=== PATIENT | female | born 1950 | race Caucasian/White ===

== ENCOUNTER → 2017-01-25 | Outpatient (CLI) | payer MEDICARE, BC | END | disposition home or self-care (01) | LOC: CFH 14:46 | PROVIDERS: ATTEND Internal Medicine | DX: Z12.31 Encounter for screening mammogram for malignant neoplasm of breast (principal) | CPT/HCPCS: 77063; G0202 ==

== ENCOUNTER → 2018-01-27 | Outpatient (CLI) | payer MEDICARE, BC | LOC: CFH 14:08 | PROVIDERS: ATTEND Internal Medicine | DX: Z02.9 Encounter for administrative examinations, unspecified (principal) ==

== ENCOUNTER → 2018-04-14 | Outpatient (CLI) | payer MEDICARE, BC | END | disposition home or self-care (01) | LOC: CFH 13:01 | PROVIDERS: ATTEND Obstetrics & Gynecology | DX: N63.11 Unspecified lump in the right breast, upper outer quadrant (principal); N64.4 Mastodynia | CPT/HCPCS: 77065; 77066; G0279 ==

== ENCOUNTER → 2018-05-27 | Outpatient (CLI) | payer MEDICARE, BC ==
[~2018-05-27] MED LIST: GADOBUTROL 10 MMOL/10 ML VIAL ONE
== END | disposition home or self-care (01) ==
LOC: CFH 06:38
PROVIDERS: ATTEND Internal Medicine Hematology & Oncology
DX: C50.411 Malignant neoplasm of upper-outer quadrant of right female breast (principal)
CPT/HCPCS: A9585; C8908; 93306

== ENCOUNTER 2018-06-06 07:59 | Day surgery (SDC) | payer MEDICARE, BC ==
[~2018-06-06] VITALS: Ht 162.6 cm; Wt 76.3 kg
[2018-06-06 08:46] VITALS: BP 157/99
[2018-06-06] MEDS ORDERED: LACTATED RINGERS 1,000 ML IV SCH (08:46)
[2018-06-06] MEDS ORDERED: OMEG-107 PO (08:56)
[2018-06-06] MEDS ORDERED: LEVO100T5 PO ×2 (08:56)
[2018-06-06] MEDS ORDERED: ATOR10TA PO (08:56)
[2018-06-06] MEDS ORDERED: VENL150C6 PO (08:56)
[2018-06-06] MEDS ORDERED: CHOL2000 PO (08:56)
[2018-06-06] MEDS ORDERED: LIDOCAINE-MPF 1%, 2ML INFIL ONE (09:00)
[2018-06-06] MEDS ORDERED: BUPIVACAINE/PF-EPI 0.5% 1:200K ONE (10:03)
[2018-06-06] MEDS ORDERED: HEPARIN 5,000 UNITS/ML, 1ML ONE (10:04)
[2018-06-06] MEDS ORDERED: MIDAZOLAM 1 MG/ML, 2ML ONE (10:16)
[2018-06-06] MEDS ORDERED: FENTANYL PF 100 MCG/2ML ONE (10:16)
[2018-06-06] MEDS ORDERED: PROPOFOL 10 MG/ML, 20ML ONE (10:17)
[2018-06-06] MEDS ORDERED: ROCURONIUM 10MG/ML,5ML ONE (10:17)
[2018-06-06] MEDS ORDERED: SUCCINYLCHOLINE 20 MG/ML, 10ML ONE (10:17)
[2018-06-06] MEDS ORDERED: EPHEDRINE 50 MG/ML, 1ML IVPush PRN (11:00)
[2018-06-06] MEDS ORDERED: hydrALAzine 20 MG/ML, 1ML IV PRN (11:00)
[2018-06-06] MEDS ORDERED: MORPHINE SULFATE 4 MG/ML, 1ML IVPush PRN (11:00)
[2018-06-06] MEDS ORDERED: OXYcodone 5 MG/5 ML ORAL.SOL UDC PO PRN (11:00)
[2018-06-06] MEDS ORDERED: PROMETHAZINE 12.5 MG SUPP PR PRN (11:00)
[2018-06-06] MEDS ORDERED: FENTANYL PF 100 MCG/2ML IV PRN (11:00)
[2018-06-06] MEDS ORDERED: SCOPOLAMINE PATCH, 1.5MG PATCH.TD72 TD PRN (11:00)
[2018-06-06] MEDS ORDERED: LORazepam 2 MG/ML, 1ML IVPush PRN (11:00)
[2018-06-06] MEDS ORDERED: MIDAZOLAM 1 MG/ML, 2ML IV PRN (11:00)
[2018-06-06] MEDS ORDERED: ALBUTEROL SULFATE 2.5 MG/3 ML NPPB PRN (11:00)
[2018-06-06] MEDS ORDERED: ONDANSETRON ODT 8 MG PO PRN (11:00)
[2018-06-06] MEDS ORDERED: MEPERIDINE/PF 25MG/0.5ML IVPush PRN (11:00)
[2018-06-06] MEDS ORDERED: ONDANSETRON 2MG/ML, 2ML IV PRN (11:00)
[2018-06-06] MEDS ORDERED: PROMETHAZINE 25 MG/ML, 1ML IV PRN (11:00)
[2018-06-06] MEDS ORDERED: HALOPERIDOL 5 MG/ML IV PRN (11:00)
[2018-06-06] MEDS ORDERED: ACETAMINOPHEN 325 MG TABLET PO PRN (11:00)
[2018-06-06] MEDS ORDERED: LABETALOL 5MG/ML, 20ML IV PRN (11:00)
[2018-06-06] MEDS ORDERED: HYDROmorphone 1 MG/ML, 1ML IV PRN (11:00)
[2018-06-06] MEDS ORDERED: OXYcodone 5 MG/5 ML ORAL.SOL UDC ONE (11:10)
[2018-06-06] MEDS ORDERED: ACETAMINOPHEN 650 MG/20.3 ML UDC ONE (11:10)
[2018-06-06] MEDS ORDERED: ONDANSETRON 2MG/ML, 2ML ONE (16:00)
[2018-06-06] MEDS ORDERED: DEXAMETHASONE 4 MG/ML, 1ML ONE (16:00)
== END 2018-06-06 13:30 | disposition home or self-care (01) ==
LOC: OUT 07:59
PROVIDERS: ATTEND Surgery
DX: Z45.2 Encounter for adjustment and management of vascular access device (principal); C50.911 Malignant neoplasm of unspecified site of right female breast; E03.9 Hypothyroidism, unspecified; Z98.890 Other specified postprocedural states; Z90.49 Acquired absence of other specified parts of digestive tract; Z79.899 Other long term (current) drug therapy; Z88.1 Allergy status to other antibiotic agents; Z87.891 Personal history of nicotine dependence; Z72.89 Other problems related to lifestyle
CPT/HCPCS: 36561; 77001; 93005; C1788; J0330; J1100; J1644; J2250; J2405; J2704; J3010; J3490; J7120

== ENCOUNTER → 2018-06-08 | Outpatient (CLI) | payer MEDICARE, BC ==
[~2018-06-08] MED LIST changes: +ATOR10TA PO; +CHOL2000 PO; -GADOBUTROL 10 MMOL/10 ML VIAL ONE; +LEVO100T5 PO; +OMEG-107 PO; +VENL150C6 PO
== END | disposition home or self-care (01) ==
LOC: PETCFH 12:12
PROVIDERS: ATTEND Internal Medicine Hematology & Oncology
DX: N63.10 Unspecified lump in the right breast, unspecified quadrant (principal); K86.89 Other specified diseases of pancreas; C50.411 Malignant neoplasm of upper-outer quadrant of right female breast; Z90.49 Acquired absence of other specified parts of digestive tract
CPT/HCPCS: 78815; A9552

== ENCOUNTER → 2018-10-25 | Outpatient (CLI) | payer MEDICARE, BC ==
[~2018-10-25] MED LIST changes: +DIPH1TAB PO; +LISI5TAB7 PO; +METO25TA35 PO
[2018-10-25 14:34] LABS: ALBUMIN 3.2 g/dL (3.4-5.0); ANION GAP 7 mmol/L (5-15); CALCIUM 8.9 mg/dL (8.5-10.1); CHLORIDE 109 mmol/L (98-107)
[2018-10-25 14:38] LABS: ALANINE AMINOTRANSFERASE 16 U/L (12-78); ALKALINE PHOSPHATASE 99 U/L (45-117); BILIRUBIN,TOTAL 0.3 mg/dL (0.2-1.0); CREATININE 1.21 mg/dL (0.55-1.02); TOTAL PROTEIN 6.6 g/dL (6.4-8.2)
[2018-10-25 15:19] LABS: MEAN CORPUSCULAR HEMOGLOBIN 33.5 pg (27.0-34.8); MEAN CORPUSCULAR HGB CONC 32.1 g/dL (32.4-35.8); MEAN CORPUSCULAR VOLUME 104.2 fL (80-100); MEAN PLATELET VOLUME 7.3 fL (7.4-10.4); PLATELET COUNT 305 x10^3/uL (130-400); RED BLOOD COUNT 2.63 x10^6/uL (3.82-5.3); RED CELL DISTRIBUTION WIDTH 20.9 % (9.6-15.2)
[2018-10-25 15:20] LABS: MD YES
[2018-10-25 15:25] LABS: LYMPH#(MANUAL) 0.91 x10^3/uL (1-3.4); LYMPHS% (MANUAL) 8 % (22-44)
[2018-10-25 15:30] LABS: BAND#(MANUAL) 1.03 x10^3/uL; BANDS%(MANUAL) 9 % (0-7); NRBC % (MANUAL) 2 % (0-1); SEG#(MANUAL) 6.27 x10^3/uL (1.8-6.8); SEGS% (MANUAL) 55 % (42-75)
[2018-10-25 15:31] LABS: BASOS#(MANUAL) 0.11 x10^3/uL (0-0.1); BASOS% (MANUAL) 1 % (0-1); EOS#(MANUAL) 0.11 x10^3/uL (0.0-0.4); EOS% (MANUAL) 1 % (1-7); METAMYELOCYTES# (MANUAL) 0.57 x10^3/uL (0-0); METAMYELOCYTES% (MANUAL) 5 % (0-1); MONOS#(MANUAL) 1.94 x10^3/uL (0.3-2.7); MONOS% (MANUAL) 17 % (2-9); MYELOCYTES# (MANUAL) 0.46 x10^3/uL (0-0); MYELOCYTES% (MANUAL) 4 % (0-0)
[2018-10-25 15:32] LABS: ANISOCYTOSIS 2+; MICROCYTOSIS 1+; OVALOCYTES 1+; POLYCHROMASIA 1+
[2018-10-25 15:33] LABS: <PLATELET ESTIMATE> ADEQUATE; <PLT MORPHOLOGY> NORMAL PLT MORPH
== END | disposition home or self-care (01) ==
LOC: STAR 12:59
PROVIDERS: ATTEND Surgery
DX: Z01.818 Encounter for other preprocedural examination (principal); Z79.899 Other long term (current) drug therapy; Z72.89 Other problems related to lifestyle; Z88.1 Allergy status to other antibiotic agents; Z88.8 Allergy status to other drugs, medicaments and biological substances
CPT/HCPCS: 36415; 80053; 85025; 93005

== ENCOUNTER 2018-11-07 05:59 | Inpatient (IN) | payer MEDICARE, BC ==
[~2018-11-07] VITALS: Ht 160 cm; Wt 74.2 kg
[2018-11-07] MEDS ORDERED: BUPIVACAINE/PF-EPI 0.5% 1:200K ONE (06:22)
[2018-11-07] MEDS ORDERED: LACTATED RINGERS 1,000 ML IV SCH (06:40)
[2018-11-07] MEDS ORDERED: MIDAZOLAM 1 MG/ML, 2ML ONE (07:08)
[2018-11-07] MEDS ORDERED: FENTANYL PF 250 MCG/5ML ONE (07:08)
[2018-11-07] MEDS ORDERED: LIDOCAINE-MPF 2% ,5ML ONE (07:09)
[2018-11-07] MEDS ORDERED: PROPOFOL 10 MG/ML, 20ML ONE (07:09)
[2018-11-07] MEDS ORDERED: WATER-INJECTION,STERILE 10 ML IV ONE (07:09)
[2018-11-07] MEDS ORDERED: CEFAZOLIN 1,000 MG ONE ×2 (07:10)
[2018-11-07] MEDS ORDERED: PHENYLEPHRINE 10 MG/ML ONE (07:11)
[2018-11-07] MEDS ORDERED: DEXAMETHASONE 4 MG/ML, 5ML ONE (07:12)
[2018-11-07] MEDS ORDERED: ONDANSETRON 2MG/ML, 2ML ONE ×2 (07:12)
[2018-11-07] MEDS ORDERED: SCOPOLAMINE PATCH, 1.5MG PATCH.TD72 TD ONE ×2 (07:15)
[2018-11-07] MEDS ORDERED: GABAPENTIN 300 MG CAPSULE ONE ×3 (07:15)
[2018-11-07] MEDS ORDERED: KETOROLAC 30 MG/1 ML ONE (08:12)
[2018-11-07] MEDS ORDERED: HYDROmorphone 2 MG/ML, 1ML IVPush PRN (09:00)
[2018-11-07] MEDS ORDERED: hydrALAzine 20 MG/ML, 1ML IV PRN (09:00)
[2018-11-07] MEDS ORDERED: HALOPERIDOL 5 MG/ML IV PRN (09:00)
[2018-11-07] MEDS ORDERED: OXYcodone 5 MG/5 ML ORAL.SOL UDC PO PRN (09:00)
[2018-11-07] MEDS ORDERED: ACETAMINOPHEN 325 MG TABLET PO PRN (09:00)
[2018-11-07] MEDS ORDERED: MEPERIDINE/PF 25MG/0.5ML IVPush PRN (09:00)
[2018-11-07] MEDS ORDERED: FENTANYL PF 100 MCG/2ML ONE (09:41)
[2018-11-07] MEDS ORDERED: OXYcodone 5 MG/5 ML ORAL.SOL UDC ONE (09:42)
[2018-11-07] MEDS: FENTANYL PF 100 MCG/2ML IV PRN ×2 (09:44→09:58)
[2018-11-07] MEDS ORDERED: ONDANSETRON 2MG/ML, 2ML IV PRN (11:00)
[2018-11-07] MEDS ORDERED: DIPHENHYDRAMINE 50 MG/ML, 1ML IV PRN (11:00)
[2018-11-07] MEDS ORDERED: DIPHENOXYLATE/ATROPINE TABLET PO PRN (11:00)
[2018-11-07] MEDS ORDERED: morphine SULFATE 10 MG/ML, 1ML IV PRN (11:00)
[2018-11-07] MEDS ORDERED: DIPHENHYDRAMINE 25 MG CAPSULE PO PRN (11:00)
[2018-11-07] MEDS: LEVOTHYROXINE 100 MCG TABLET PO SCH (11:57)
[2018-11-07 13:16] VITALS: BP 128/62
[2018-11-07] MEDS: LACTATED RINGERS 1,000 ML IV SCH (13:16)
[2018-11-07] MEDS: HYDROcodone/APAP 5/325 TABLET PO PRN ×2 (16:12→23:03)
[2018-11-07 19:12] VITALS: BP 141/68
[2018-11-07 20:53] VITALS: BP 141/70
[2018-11-07] MEDS ORDERED: METOPROLOL TARTRATE 25 MG TABLET PO SCH (21:00)
[2018-11-07] MEDS ORDERED: ATORVASTATIN 10 MG TABLET PO SCH (21:00)
[2018-11-07 23:43] VITALS: BP 148/72
[2018-11-08] MEDS: LACTATED RINGERS 1,000 ML IV SCH (01:11)
[2018-11-08 03:30] VITALS: BP 130/72
[2018-11-08] MEDS: LEVOTHYROXINE 100 MCG TABLET PO SCH (05:20)
[2018-11-08] MEDS: HYDROcodone/APAP 5/325 TABLET PO PRN ×2 (05:20→09:35)
[2018-11-08 07:29] VITALS: BP 120/70
[2018-11-08] MEDS ORDERED: HYDR-3240 PO (07:57)
[2018-11-08] MEDS ORDERED: LISINOPRIL 5 MG TABLET PO SCH (09:00)
[2018-11-08] MEDS ORDERED: VENLAFAXINE 75 MG CAP ER PO SCH (09:00)
[2018-11-08] MEDS ORDERED: CHOLECALCIFEROL 1,000 UNIT TABLET PO SCH (09:00)
[2018-11-08] MEDS ORDERED: OMEGA-3/FISH OIL CAPSULE PO SCH (09:00)
[2018-11-10] MEDS ORDERED: LEVOTHYROXINE 100 MCG TABLET PO SCH (06:00)
[2018-11-13] MEDS ORDERED: LEVOTHYROXINE 50 MCG TABLET PO SCH (06:00)
== END 2018-11-08 11:30 | disposition home or self-care (01) | DRG 583 ==
LOC: OUT 05:59 → 4NOR 10:29 → OUT 10:32 → DCLOUNGE 11-08 11:22
PROVIDERS: ADMIT Surgery; ATTEND Surgery
PROC: 0HTV0ZZ Resection of Bilateral Breast, Open Approach (ICD-10-PCS; principal; 2018-11-07 07:30)
DX: C50.912 Malignant neoplasm of unspecified site of left female breast (principal); C50.911 Malignant neoplasm of unspecified site of right female breast; Z88.8 Allergy status to other drugs, medicaments and biological substances; I10 Essential (primary) hypertension; E03.9 Hypothyroidism, unspecified; R15.9 Full incontinence of feces; Z90.13 Acquired absence of bilateral breasts and nipples; Z90.49 Acquired absence of other specified parts of digestive tract
CPT/HCPCS: 88307; G0378; J0690; J1100; J1885; J2250; J2405; J2704; J3010; J3490; J2370; J7120

== ENCOUNTER 2018-11-14 06:39 | Observation (INO) | payer MEDICARE, BC ==
[~2018-11-14] VITALS: Ht 161.3 cm; Wt 72.5 kg
[~2018-11-14 06:39] MED LIST changes: +HYDR-3240 PO
[2018-11-14] MEDS ORDERED: HEPARIN 1,000 UNITS/ML, 10ML ONE (06:46)
[2018-11-14] MEDS ORDERED: BUPIVACAINE/PF 0.25% ONE (06:46)
[2018-11-14] MEDS ORDERED: EPINEPHRINE 1 MG/ML, 1ML ONE (06:47)
[2018-11-14] MEDS ORDERED: LACTATED RINGERS 1,000 ML IV SCH (07:22)
[2018-11-14 07:25] VITALS: BP 88/63
[2018-11-14] MEDS ORDERED: GABAPENTIN 300 MG CAPSULE PO ONE (07:30)
[2018-11-14] MEDS ORDERED: DIAZEPAM 5 MG TABLET PO ONE (07:30)
[2018-11-14] MEDS ORDERED: LIDOCAINE-MPF 1%, 2ML INFIL ONE (07:30)
[2018-11-14] MEDS ORDERED: SCOPOLAMINE PATCH, 1.5MG PATCH.TD72 TD ONE (07:30)
[2018-11-14] MEDS ORDERED: ACETAMINOPHEN 500 MG TABLET PO ONE (07:30)
[2018-11-14] MEDS ORDERED: FENTANYL PF 250 MCG/5ML ONE (07:57)
[2018-11-14] MEDS ORDERED: MIDAZOLAM 1 MG/ML, 2ML ONE (07:57)
[2018-11-14] MEDS ORDERED: VASOPRESSIN 20 UNIT/ML, 1ML ONE (08:04)
[2018-11-14] MEDS ORDERED: DEXAMETHASONE 4 MG/ML, 1ML ONE (08:04)
[2018-11-14] MEDS ORDERED: ONDANSETRON 2MG/ML, 2ML ONE (08:04)
[2018-11-14] MEDS ORDERED: CEFAZOLIN 1,000 MG ONE (08:04)
[2018-11-14] MEDS ORDERED: PHENYLEPHRINE 10 MG/ML ONE (08:04)
[2018-11-14] MEDS ORDERED: ROCURONIUM 10MG/ML,5ML ONE (08:23)
[2018-11-14] MEDS ORDERED: SUCCINYLCHOLINE 20 MG/ML, 10ML ONE (08:23)
[2018-11-14] MEDS ORDERED: LIDOCAINE-MPF 2% ,5ML ONE (08:23)
[2018-11-14] MEDS ORDERED: PROPOFOL 10 MG/ML, 20ML ONE (08:23)
[2018-11-14] MEDS ORDERED: hydrALAzine 20 MG/ML, 1ML IV PRN (09:30)
[2018-11-14] MEDS ORDERED: ONDANSETRON ODT 8 MG PO PRN (09:30)
[2018-11-14] MEDS ORDERED: EPHEDRINE 50 MG/ML, 1ML IVPush PRN (09:30)
[2018-11-14] MEDS ORDERED: PLEASE ENTER HEIGHT AND WEIGHT MC SCH (09:30)
[2018-11-14] MEDS ORDERED: METOPROLOL 1 MG/ML, 5ML IV PRN (09:30)
[2018-11-14] MEDS ORDERED: DIAZEPAM 5 MG/ML, 2ML IVPush PRN (09:30)
[2018-11-14] MEDS ORDERED: ALBUTEROL SULFATE 2.5 MG/3 ML NPPB PRN (09:30)
[2018-11-14] MEDS ORDERED: MEPERIDINE/PF 25MG/0.5ML IVPush PRN (09:30)
[2018-11-14] MEDS ORDERED: HALOPERIDOL 5 MG/ML IV PRN (09:30)
[2018-11-14] MEDS ORDERED: MIDAZOLAM 1 MG/ML, 2ML IV PRN (09:30)
[2018-11-14] MEDS ORDERED: ONDANSETRON 2MG/ML, 2ML IV PRN (09:30)
[2018-11-14] MEDS ORDERED: OXYcodone 5 MG/5 ML ORAL.SOL UDC PO PRN (09:30)
[2018-11-14] MEDS ORDERED: LABETALOL 5MG/ML, 20ML IV PRN (09:30)
[2018-11-14] MEDS ORDERED: PROMETHAZINE 12.5 MG SUPP PR PRN (09:30)
[2018-11-14] MEDS ORDERED: PROMETHAZINE 25 MG/ML, 1ML IV PRN (09:30)
[2018-11-14] MEDS ORDERED: MORPHINE SULFATE 4 MG/ML, 1ML IVPush PRN (09:30)
[2018-11-14] MEDS ORDERED: FENTANYL PF 100 MCG/2ML ONE (09:43)
[2018-11-14] MEDS ORDERED: OXYcodone 5 MG/5 ML ORAL.SOL UDC ONE (09:43)
[2018-11-14] MEDS: FENTANYL PF 100 MCG/2ML IV PRN ×4 (10:15→11:05)
[2018-11-14] MEDS ORDERED: HYDROmorphone 1 MG/ML, 1ML ONE (10:24)
[2018-11-14] MEDS: HYDROmorphone 2 MG/ML, 1ML IVPush PRN ×3 (10:28→10:55)
[2018-11-14] MEDS ORDERED: ONDANSETRON 4 MG TABLET PO PRN (19:00)
[2018-11-14] MEDS ORDERED: DIPHENOXYLATE/ATROPINE TABLET PO PRN (20:00)
[2018-11-14 20:15] VITALS: BP 131/79
[2018-11-14] MEDS ORDERED: ATORVASTATIN 10 MG TABLET PO SCH (21:00)
[2018-11-15 00:21] VITALS: BP 105/55
[2018-11-15 04:09] VITALS: BP 126/74
[2018-11-15] MEDS ORDERED: LEVOTHYROXINE 100 MCG TABLET PO SCH (06:00)
[2018-11-15 06:58] VITALS: BP 98/63
[2018-11-15] MEDS ORDERED: OMEGA-3/FISH OIL CAPSULE PO SCH (09:00)
[2018-11-15] MEDS ORDERED: CHOLECALCIFEROL 1,000 UNIT TABLET PO SCH (09:00)
[2018-11-15] MEDS ORDERED: VENLAFAXINE 75 MG CAP ER PO SCH (09:00)
[2018-11-15] MEDS ORDERED: LISINOPRIL 5 MG TABLET PO SCH (09:00)
[2018-11-15 10:00] VITALS: BP 99/60
[2018-11-15] MEDS ORDERED: HYDR-3653 PO (10:23)
[2018-11-15] MEDS ORDERED: ONDA4TAB7 PO (10:23)
[2018-11-15 13:38] VITALS: BP 97/55
[2018-11-16] MEDS ORDERED: METOPROLOL TARTRATE 25 MG TABLET PO SCH (09:00)
[2018-11-20] MEDS ORDERED: LEVOTHYROXINE 50 MCG TABLET PO SCH (06:00)
== END 2018-11-15 21:47 | disposition home or self-care (01) ==
LOC: OUT 06:39 → ORIP 18:44 → 4NOR 19:26
PROVIDERS: ADMIT Specialist; ATTEND Specialist
DX: Z40.02 Encounter for prophylactic removal of ovary(s) (principal); Z15.01 Genetic susceptibility to malignant neoplasm of breast; Z85.3 Personal history of malignant neoplasm of breast
CPT/HCPCS: 58552; 74018; 88307; 93005; G0378; J0171; J0330; J0690; J1100; J1170; J2250; J2370; J2405; J2704; J3010; J3490; J7120; J1644

== ENCOUNTER → 2018-11-16 | Outpatient (CLI) | payer MEDICARE, BC ==
[~2018-11-16] MED LIST changes: +HYDR-3653 PO; +ONDA4TAB7 PO
== END | disposition home or self-care (01) ==
LOC: CFH 12:04
PROVIDERS: ATTEND Internal Medicine Cardiovascular Disease
DX: I05.9 Rheumatic mitral valve disease, unspecified (principal); I10 Essential (primary) hypertension; Z90.13 Acquired absence of bilateral breasts and nipples
CPT/HCPCS: 93306

== ENCOUNTER → 2019-01-19 | Outpatient (CLI) | payer MEDICARE, BC | END | disposition home or self-care (01) | LOC: RAD 12:01 | PROVIDERS: ATTEND Internal Medicine | DX: M25.562 Pain in left knee (principal) ==

== ENCOUNTER → 2020-01-29 | Outpatient (CLI) | payer MEDICARE, BC ==
[2020-01-29 09:09] LABS: ALANINE AMINOTRANSFERASE 31 U/L (12-78); ALBUMIN 3.5 g/dL (3.4-5.0); ANION GAP 7 mmol/L (5-15); CALCIUM 8.9 mg/dL (8.5-10.1); CHLORIDE 110 mmol/L (98-107); CHOLESTEROL, TOTAL 219 mg/dL (140-239); CREATININE 1.33 mg/dL (0.55-1.02)
[2020-01-29 09:13] LABS: ALKALINE PHOSPHATASE 114 U/L (45-117); BILIRUBIN,TOTAL 0.4 mg/dL (0.2-1.0); CHOL/HDL RATIO 3.5; HDL CHOL % 28 % (28-40); HDL CHOLESTEROL (DIRECT) 62 mg/dL (40-60); LDL CHOLESTEROL,CALCULATED 93 mg/dL (54-169); LDL/HDL RATIO 1.5 (0.5-3.0); TOTAL PROTEIN 7.4 g/dL (6.4-8.2); TRIGLYCERIDES 321 mg/dL (50-200); VLDL CHOLESTEROL 64 mg/dL (0-25)
== END | disposition home or self-care (01) ==
LOC: RAD 07:44 → EDSTATUS 08:00
PROVIDERS: ATTEND Internal Medicine Cardiovascular Disease
DX: I05.1 Rheumatic mitral insufficiency (principal); E03.9 Hypothyroidism, unspecified; E78.2 Mixed hyperlipidemia
CPT/HCPCS: 36415; 80053; 80061; 83880; 93306

== ENCOUNTER → 2020-07-25 | Outpatient (CLI) | payer MEDICARE, BC ==
[~2020-07-25] MED LIST changes: +REGADENOSON 0.4 MG/5 ML SYRINGE ONE
[2020-07-25 08:35] LABS: BASOPHILS % (AUTO) 1 % (0-1); EOSINOPHILS % (AUTO) 2 % (1-7); LYMPHOCYTES % (AUTO) 19 % (22-44); MEAN CORPUSCULAR HEMOGLOBIN 32.1 pg (27.0-34.8); MEAN CORPUSCULAR HGB CONC 32.2 g/dL (32.4-35.8); MEAN PLATELET VOLUME 6.8 fL (7.4-10.4); MONOCYTES % (AUTO) 8 % (2-9); NEUTROPHILS % (AUTO) 70 % (42-75); PLATELET COUNT 291 x10^3/uL (130-400); RED BLOOD COUNT 3.87 x10^6/uL (3.82-5.3); RED CELL DISTRIBUTION WIDTH 14.8 % (9.6-15.2)
[2020-07-25 08:45] LABS: ALBUMIN 3.3 g/dL (3.4-5.0); ANION GAP 8 mmol/L (5-15); CHLORIDE 104 mmol/L (98-107)
[2020-07-25 08:56] LABS: ALANINE AMINOTRANSFERASE 16 U/L (12-78); ALKALINE PHOSPHATASE 131 U/L (45-117); BILIRUBIN,TOTAL 0.7 mg/dL (0.2-1.0); CREATININE 1.73 mg/dL (0.55-1.02); FREE T4 (FREE THYROXINE) 0.56 ng/dL (0.76-1.46); MD NO; TOTAL PROTEIN 7.6 g/dL (6.4-8.2)
== END | disposition home or self-care (01) ==
LOC: CFH 08:11
PROVIDERS: ATTEND Internal Medicine Cardiovascular Disease
DX: Z51.11 Encounter for antineoplastic chemotherapy (principal); C50.411 Malignant neoplasm of upper-outer quadrant of right female breast; D70.1 Agranulocytosis secondary to cancer chemotherapy; I95.2 Hypotension due to drugs; R06.02 Shortness of breath
CPT/HCPCS: 36415; 78452; 80053; 82306; 84439; 84443; 84481; 85025; 93017; A9502; J2785